=== PATIENT | male | born 1985 | race Hispanic/Latino ===

== ENCOUNTER 2020-05-30 15:34 | Emergency (ER) | payer MEDICAID, OTHER ==
[~2020-05-30] VITALS: Ht 167.6 cm; Wt 75.3 kg
== END 2020-05-30 17:05 | disposition home or self-care (01) ==
LOC: ED 15:34
DX: K40.90 Unilateral inguinal hernia, without obstruction or gangrene, not specified as recurrent (principal); Z87.891 Personal history of nicotine dependence
CPT/HCPCS: 99283

== ENCOUNTER 2020-06-19 10:29 | Emergency (ER) | payer MEDICAID, OTHER ==
[~2020-06-19] VITALS: Ht 167.6 cm; Wt 75.3 kg
--- OUTSIDE RECORDS SUMMARY | 2020-06-19 10:32 | XMS ---
PreManage Notification: LEATHA ANDREWS Security Cheese [employer] Events No recent Security Events currently on file CRITERIA MET - [facility] - 2 Visits in 30 Days CARE PROVIDERS There are no care providers on record at this time. Ana has no Care Guidelines for this patient. [facility] MO.) [facility] NOTE: Visits indicate total known visits. ED/C VISIT TRACKING (12 MO.) [facility]2020 10[facility]30 [facility] COMPLAINT: - ABDOMINAL PAIN 05/30/2020 15:36 [facility] [place] TYPE: Emergency COMPLAINT: - POSS INCARCERATED INGUINAL HERNIA DIAGNOSES: - Personal history of nicotine dependence - Unilateral inguinal hernia, without obstruction or gangrene, INPATIENT VISIT TRACKING (12 MO.) No inpatient visits to display in this time frame [id number]
== END 2020-06-19 12:31 | disposition home or self-care (01) ==
LOC: ED 10:29
DX: K40.90 Unilateral inguinal hernia, without obstruction or gangrene, not specified as recurrent (principal); Z87.891 Personal history of nicotine dependence
CPT/HCPCS: 72193; 80048; 85025; 99284-25; J1885; Q9967

== ENCOUNTER 2020-08-31 06:10 | Day surgery (SDC) | payer MEDICAID, OTHER ==
[~2020-08-31] VITALS: Ht 167.6 cm; Wt 77.2 kg
--- NOTE | 2020-08-31 08:11 | NUR ---
RAPID COVID SWAB COLLECTED
--- NOTE | 2020-08-31 12:09 | NUR ---
08/31/20 1209 Sheets,Marian 1202 PT ARRIVED TO PACU ON 6L VIA MASK, ORAL AIRWAY IN PLACE. RESP EVEN AND UNLABORED. PT NONAROUSABLE, VSS.
[2020-08-31] MEDS ORDERED: ACETAMINOPHEN500 MG PO (12:12)
[2020-08-31] MEDS ORDERED: HYDROCODON-ACE1 EA10 PO (12:12)
[2020-08-31] MEDS ORDERED: IBUPROFEN600 MG PO (12:12)
--- NOTE | 2020-08-31 13:08 | NUR ---
1235 PT BACK TO ROOM FROM PACU AWAKE AND ALERT DENIES PAIN OR NAUSEA, PT TAKING SIPS OF WATER AND EATING CRACKERS HE TOLERATES THEM WELL. DRESSING IS CLEAN AND DRY.
--- NOTE | 2020-08-31 13:29 | NUR ---
1320 PT UP TO BATHROOM WITH MINIMAL ASSIST. PT WAS ABLE TO VOID ABOUT 200ML OF CLEAR YELLOW URINE. PT DENIES PAIN OR NAUSEA
--- NOTE | 2020-08-31 13:48 | NUR ---
1325 PT GIVEN DISCHARGE INSTRUCTION HE VOICED UNDERSTANDING.
--- NOTE | 2020-09-03 10:54 | OR ---
[facility] [address] [place], [place] [address] Signed DATE OF OPERATION: 08/31/2020 SURGEON: Juan Montoya MD PREOPERATIVE DIAGNOSIS: Left inguinal hernia. POSTOPERATIVE DIAGNOSIS: Large left indirect inguinal hernia and bulky left cord. PROCEDURE: Repair of left inguinal hernia with implantation of Prolene mesh and ligation and excision of left indirect hernia sac. ANESTHESIA: General endotracheal; Karin Romero CRNA and local 20 mL of 0.25% Marcaine with epinephrine. INDICATION: This 34-year-old white man is a prisoner at [facility]. He was found to have a rather bulky left inguinal hernia. It appeared to be nonreducible. The possibility of sliding-type hernia was considered likely. He is admitted at this time to undergo repair. He understands the risks of bleeding, infection, recurrence and so on. FINDINGS: There is no sign of sliding component to the hernia sac. It was bulky and contained omentum. The inguinal organs (spermatic cord) was quite bulky and fatty as well though there was no distinct lipoma of the cord to excise. Rather than debulk cord of the fat and hazard of vascular compromise to the testicle. The hernia sac alone was dissected free, ligated at its base, amputated and implantation of mesh in an underlay technique accomplished. DESCRIPTION OF PROCEDURE: The patient was brought to the operating room, given a general endotracheal anesthetic. Preoperative antibiotic Ancef was given. Sequential compression device stockings applied. The lower abdomen was clipped and prepared with a chlorhexidine solution and draped sterilely. An incision was made in the left groin above the pubic tubercle. Dissection carried through the abdominal wall fat using blunt electrocautery dissection. External oblique was incised along its fibers revealing the bulky underlying cord and possible hernia. Blunt dissection was undertaken showing a very fatty and bulky cord. Electronically Signed By: JUAN MONTOYA MD 09/03/20 1054 PATIENT NAME: LEATHA ANDREWS OPERATIVE REPORT DATE OF : 87 REPORT #: [id number] PHYSICIAN: JUAN MONTOYA MD PCP: YA DIAZ NP REPORT IS CONFIDENTIAL AND NOT TO BE RELEASED WITHOUT AUTHORIZATION [facility] [address], [place] [address] Signed The testicle was easily withdrawn into the incision. The external oblique was incised along its fibers revealing the cord structures more fully. The bulky fatty cord structure was encircled with a Hurst drain. The floor was dissected free and there appeared to be an indirect hernia sac. The hernia sac was dissected free from the cord structures with meticulous care, intercalated with the fatty substance of the cord. The hernia sac was ultimately dissected free and incised. The distal portion of the hernia sac was left in situ. The hernia sac was dissected free from the cord more fully showing no evidence of a sliding component and easily herniating omentum. Neck of the sac was oversewn with running 2-0 silk suture, doubly applied, redundant hernia sac amputated and passed for pathology. Inspection of the cord more fully showed fatty cord but no distinct lipoma for which excision would be likely beneficial. The fatty tissue was left in situ, so as to avoid compromise of vascular structures of the cord. Attention was turned towards the floor. The attenuated fibers were incised with electrocautery and a segment of Prolene mesh was secured in an underlay technique with interrupted 2-0 Prolene sutures. The tails of the graft were carried around the cord laterally, so as to allow and accommodate for the cord structures. Good repair was noted. 20 mL of 0.25% Marcaine with epinephrine was injected locally. The bulky cord was replaced into the canal and external oblique reapproximated partially with running 2-0 Vicryl suture. Yen layer was reapproximated with interrupted 2-0 Vicryl in the skin closed with running subcuticular 3-0 Vicryl. Steri-Strips were applied as was a silver sponge dressing. The patient tolerated the procedure well. He was extubated, and transferred to the recovery room in good condition. MD SEAN Murray/TISH /[id number] cc: Martinez Copies: ~ Electronically Signed By: JUAN MONTOYA MD 09/03/20 1054 PATIENT NAME: LEATHA ANDREWS OPERATIVE REPORT DATE OF : 87 REPORT #: [id number] PHYSICIAN: JUAN MONTOYA MD PCP: YA DIAZ NP REPORT IS CONFIDENTIAL AND NOT TO BE RELEASED WITHOUT AUTHORIZATION
--- NOTE | 2020-09-04 13:01 | PATH ---
[facility] [address] [place], [place] [address] Signed SPECIMEN(S): A LEFT INGUINAL HERNIA SAC SPECIMEN SOURCE: A. LEFT INGUINAL HERNIA SAC CLINICAL HISTORY: Left inguinal hernia. FINAL PATHOLOGIC DIAGNOSIS: Hernia sac, left inguinal, excision: - Fragments of mesothelial-lined fibromembranous and fibroadipose tissue with fibrosis and vascular congestion, consistent with hernia sac. NAL:cml:C2NR MICROSCOPIC EXAMINATION: Histologic sections of all submitted blocks are examined by light microscopy. These findings, together with the gross examination, support the pathologic diagnosis. GROSS DESCRIPTION: The specimen, labeled "SB, left inguinal hernia sac," is received in formalin and consists of two irregular shaped pink-root, fibromembranous tissue fragments that aggregate measure 6.2 x 4.1 x 0.8 cm. Sectioning through the specimen is grossly unremarkable. Dobby Looms Pegger sections are submitted in cassette (A1). JS (under the direct supervision of a pathologist) The Gross Description was prepared using a voice recognition system. The report was reviewed for accuracy; however, sound-alike word errors, addition and/or deletions may occur. If there is any question about this report, please contact Client Services. PERFORMING LABORATORY: The technical component was performed by [facility], [address] [place] [id number] (Cable Wirer: Saundra Arriaga MD; CLIA# [id number]). [facility], [address] [address] (CLIA# [id number]). Diagnostician: Melly Zuniga MD Pathologist Electronically Signed 09/04/2020 PATIENT NAME: LEATHA ANDREWS PATHOLOGY DATE OF : 87 REPORT #: [id number] PHYSICIAN: CAROLYN PATHOLOGY PCP: YA DIAZ NP REPORT IS CONFIDENTIAL AND NOT TO BE RELEASED WITHOUT AUTHORIZATION [address] [address] Signed Copies: ~ PATIENT NAME: LEATHA ANDREWS PATHOLOGY DATE OF : 87 REPORT #: [id number] PHYSICIAN: CAROLYN PATHOLOGY PCP: YA DIAZ BUCKET CHUCKER REPORT IS CONFIDENTIAL AND NOT TO BE RELEASED WITHOUT AUTHORIZATION
== END 2020-08-31 13:35 | disposition home or self-care (01) ==
LOC: DS 06:10
PROVIDERS: ATTEND Surgery
PROC: 0YU60JZ Supplement Left Inguinal Region with Synthetic Substitute, Open Approach (ICD-10-PCS; principal; 2020-08-31 10:00)
DX: K40.90 Unilateral inguinal hernia, without obstruction or gangrene, not specified as recurrent (principal); Z87.891 Personal history of nicotine dependence; Z20.828 Contact with and (suspected) exposure to other viral communicable diseases
CPT/HCPCS: 00830; 88302; C1781; C9803; J0330; J0690; J1644; J1885; J2001; J2250; J2405; J2704; U0003